=== PATIENT | female | born 1960 | race American Indian/Alaskan Native ===

== ENCOUNTER 2018-01-26 16:06 | Emergency (ER) | payer OTHER ==
[2018-01-26 16:20] VITALS: BP 170/75
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
[2018-01-26] MEDS ORDERED: ULTRAM PO ONE (20:42)
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
== END 2018-01-26 23:15 | disposition home or self-care (01) ==
LOC: ED 16:06
DX: R07.89 Other chest pain (principal); M25.511 Pain in right shoulder; M25.512 Pain in left shoulder; M79.1 Myalgia; V49.9XXA Car occupant (driver) (passenger) injured in unspecified traffic accident, initial encounter; Y93.89 Activity, other specified; Y92.89 Other specified places as the place of occurrence of the external cause; Y99.8 Other external cause status; Z98.890 Other specified postprocedural states
CPT/HCPCS: 71046; 93005; 93010